=== PATIENT | female | born 1940 | race African-American/Black ===

== ENCOUNTER 2017-12-03 09:25 | Inpatient (IN) | payer MEDICARE ==
[~2017-12-03] VITALS: Ht 160 cm; Wt 55.3 kg
[~2017-12-03 09:25] MED LIST: ALBUTEROL INHAL17 GM IH; ALBUTEROL2.5 MG/3 M IH; ALDACTONE25 MG PO; AMBIEN 10 MG TA10 MG PO; AMPICILLIN TRI500 MG PO; ASPIRIN EC81 M1 PO; CALCIUM; CARDIZEM CD300 MG PO; CIPROFLOXACIN500 M1 PO; DARVOCET-N 1001 EACH PO; DILTIAZEM 24HR300 MG PO; DOCULAX; HYDROCODON-ACE1 EAC1 PO; HYDROCODON-ACE1 EACH PO; LORTABELXR PO; MELOXICAM7.5 MG PO; MIRALAX255 GM PO; MOTION RELIEF25 MG PO; PRAVASTATIN SOD20 MG PO; SYNTHROID 0.10.1 M1 PG; SYNTHROID PO; VITAMIN D 11000 UNIT PO; VITAMIN D1000 UNI1 PO; ZPAK PO; [UNRECOGNIZED DRUG - OTHER] PO
[2017-12-03 09:31] VITALS: BP 111/85
[2017-12-03] MEDS ORDERED: COLACE100 MG PO (09:52)
[2017-12-03] MEDS ORDERED: PRAVACHOL40 MG PO (09:52)
[2017-12-03 09:55] LABS: ABSOLUTE MONOCYTES 0.2 thou/uL (0.0-1.2); ABSOLUTE NEUTROPHILS 5.3 thou/uL (1.6-8.1); BASOPHILS 0.5 %; EOSINOPHILS 0.2 %; HEMATOCRIT 41.1 % (37.0-47.0); LYMPHOCYTES 26.8 %; MCH 30.2 pg (26.0-34.0); MCHC 34.1 g/dL (28.0-37.0); MCV 88.6 fL (80.0-100.0); MONOCYTES 2.3 %; MPV 7.5 fl. (7.2-11.1); NUCLEATED RBCS 0 /100WBC; PLATELET COUNT* 366 thou/uL (150-400); POLYS 70.2 %; RBC 4.63 mil/uL (4.20-5.00); RDW-CV 13.7 % (10.5-14.5); WBC 7.6 thou/uL (4.0-11.0)
[2017-12-03 10:55] LABS: ALBUMIN 3.4 g/dL (3.4-5.0); CALCIUM 9.3 mg/dL (8.5-10.1); POTASSIUM 4.5 mmol/L (3.5-5.1); TOTAL BILIRUBIN 0.4 mg/dL (<0.1-1.0); TOTAL PROTEIN 7.1 g/dL (6.4-8.2)
[2017-12-03 11:01] LABS: URINE BILIRUBIN NEGATIVE (Negative); URINE BLOOD NEGATIVE (Negative); URINE CLARITY CLEAR; URINE COLOR YELLOW; URINE GLUCOSE-RANDOM NEGATIVE (Negative); URINE KETONES NEGATIVE (Negative); URINE LEUKOCYTES-REFLEX NEGATIVE (Negative); URINE NITRITE-REFLEX NEGATIVE (Negative); URINE PROTEIN NEGATIVE (Negative); URINE SPECIFIC GRAVITY 1.015 (1.005-1.030)
--- NOTE | 2017-12-03 12:18 | NUR ---
PT'S , NATALIA MELGAR [phone] CALLED TO REQUEST A PHONE CALL WHEN THE PT HAS A ROOM NUMBER FOR ADMISSION.
--- NOTE | 2017-12-03 12:33 | NUR ---
WITH PT'S PERMISSION, THE PT'S WAS CALLED AND TOLD THE PT WILL BE ADMITTED TO ROOM #115.
[2017-12-03 12:36] VITALS: BP 111/71
--- NOTE | 2017-12-03 12:45 | NUR ---
PATIENT ARRIVED TO UNIT AT 1245. ALERT AND ORIENTED X4. UP AD NINFA IN ROOM. IV IS PATENT. REQUESTING PAIN MEDICATION UPON ARRIVAL TO UNIT. PROVIDER NOTIFIED AND ORDERS HAVE BEEN RECIEVED. NAUSEA BEING MANAGED WITH NAUSEA MEDICATION GIVEN IN THE ER. PATIENT HAS BEEN ORIENTED TO TOOM. VSS ON ROOM AIR. HOURLY ROUNDS HAVE BEEN MAINTAINED THROUGHOUT SHIFT. CALL LIGHT IS WITHIN REACH. NURSING WILL CONTINUE TO MONTIOR.
[2017-12-03 16:00] VITALS: BP 116/65
[2017-12-03 17:47] VITALS: BP 131/69
--- NOTE | 2017-12-03 18:41 | NUR ---
ALERT AND ORIENTED X4. UP AD NINFA IN ROOM. IV IS PATENT AND INFUSING. PAIN BEING MANAGED WITH IV PAIN MEDICATION. NAUSEA BEING MANAGED WITH IV NAUSEA. MEDICATION. NPO AT THIS TIME. VSS ON ROOM AIR. HOURLY ROUNDS HAVE BEEN MAINTAINED THROUGHOUT SHIFT. CALL LIGHT IS WITHIN REACH. NURSING WILL CONTINUE TO MONITOR.
[2017-12-03 20:00] VITALS: BP 115/71
[2017-12-04 04:33] LABS: HEMATOCRIT 30.9 % (37.0-47.0); MCH 29.6 pg (26.0-34.0); MCHC 33.6 g/dL (28.0-37.0); MCV 88.1 fL (80.0-100.0); MPV 7.7 fl. (7.2-11.1); RBC 3.5 mil/uL (4.20-5.00); RDW-CV 13.3 % (10.5-14.5); WBC 6.6 thou/uL (4.0-11.0)
[2017-12-04 04:42] LABS: HEMOGLOBIN 10.4 gm/dL (12.0-15.0)
[2017-12-04 05:04] LABS: ALBUMIN 2.6 g/dL (3.4-5.0); CALCIUM 8.6 mg/dL (8.5-10.1); CREATININE 0.8 mg/dL (0.6-1.3); MAGNESIUM 1.7 mg/dL (1.8-2.4); POTASSIUM 4.1 mmol/L (3.5-5.1); TOTAL BILIRUBIN 0.6 mg/dL (<0.1-1.0); TOTAL PROTEIN 5.9 g/dL (6.4-8.2)
--- NOTE | 2017-12-04 05:17 | NUR ---
PATIENT ALERT AND ORIENTED THROUGHOUT SHIFT. VITAL SIGNS STABLE ON ROOM AIR. IV PATENT IN THE LEFT FOREARM RUNNING NORMAL SALINE AT 100 ML/HR. REMAINS UP STANDBY ASSIST IN HER ROOM. HOURLY ROUNDING HAS BEEN MAINTAINED. PAIN WAS MANAGED WITH IV PAIN MEDICATION. DENIES NAUSEA OR VOMITING. BED IN LOW POSITION. BED ALARM IN PLACE. CALL LIGHT WITHIN REACH. NURSING WILL CONTINUE TO MONITOR.
[2017-12-04 08:15] VITALS: BP 120/59
[2017-12-04 16:00] VITALS: BP 103/64
[2017-12-04 20:45] VITALS: BP 131/65
[2017-12-05 00:57] VITALS: BP 118/61
[2017-12-05 04:47] LABS: ABSOLUTE EOSINOPHILS 0.1 thou/uL (0.0-0.7); ABSOLUTE LYMPHOCYTES 1.7 thou/uL (0.8-5.3); ABSOLUTE MONOCYTES 0.4 thou/uL (0.0-1.2); ABSOLUTE NEUTROPHILS 3.2 thou/uL (1.6-8.1); BASOPHILS 0.5 %; EOSINOPHILS 1.2 %; HEMATOCRIT 26.8 % (37.0-47.0); HEMOGLOBIN 9.1 gm/dL (12.0-15.0); LYMPHOCYTES 31.1 %; MCH 30.1 pg (26.0-34.0); MCHC 33.8 g/dL (28.0-37.0); MCV 89.1 fL (80.0-100.0); MONOCYTES 7.5 %; MPV 7.5 fl. (7.2-11.1); NUCLEATED RBCS 0 /100WBC; PLATELET COUNT* 245 thou/uL (150-400); POLYS 59.7 %; RBC 3.01 mil/uL (4.20-5.00); RDW-CV 13.1 % (10.5-14.5); WBC 5.4 thou/uL (4.0-11.0)
[2017-12-05 05:09] LABS: CALCIUM 8.5 mg/dL (8.5-10.1); CREATININE 0.8 mg/dL (0.6-1.3); MAGNESIUM 1.5 mg/dL (1.8-2.4); PHOSPHORUS* 2.9 mg/dL (2.5-4.9); POTASSIUM 3.6 mmol/L (3.5-5.1)
--- NOTE | 2017-12-05 05:20 | NUR ---
PATIENT REMAINS ALERT AND ORIENTED X4. VITAL SIGNS STABLE ON ROOM AIR. PAIN BEING MANAGED WITH IV MEDICATION. DENIES NAUSEA AT THIS TIME. REPOSITIONING SELF. IV IN LEFT FOREARM PATENT AND INFUSING NS AT 100 ML/HR. TOLERATING CLEAR LIQUID DIET THROUGHOUT SHIFT. HOURLY ROUNDING COMPLETE. FALL PRECAUTIONS IN PLACE. BED IN LOW POSITION. BED ALARM IN PLACE. CALL LIGHT WITHIN REACH. NURSING WILL CONTINUE TO MONITOR.
--- NOTE | 2017-12-05 15:30 | NUR ---
PT.UP AD NINFA IN HALLS. GAIT STEADY. SPOKE WITH HER AFTER RETURNING TO ROOM. SHE SAID SHE LIVES WITH HER AND SON. SHE IS NORMALLY INDEPENDENT AT HOME. SHE DOES NOT HAVE ANY DME. HER FAMILY IS SUPPORTIVE. SHE DOESN'T THINK SHE WILL HVE ANY DISCHARGE NEEDS.
[2017-12-05 16:02] VITALS: BP 112/67
--- NOTE | 2017-12-05 19:01 | NUR ---
PATIENT REMAINED ALERT AND ORIENTED X'S 4. VITAL SIGNS AND SPO2. IV CLEAN FLUDIS INFUSING. TOLERATED DIET, NO NAUSEA AND VOMITING. PATIENT WALKED HALLS. COMPLETED HOURLY ROUNDING. CALL LIGHT WITHIN REACH. WILL CONTINUE TO MONITOR.
[2017-12-05 20:40] VITALS: BP 136/65
[2017-12-06 04:13] LABS: HEMATOCRIT 29.3 % (37.0-47.0); MCHC 34.1 g/dL (28.0-37.0); MCV 88.2 fL (80.0-100.0); MPV 7.6 fl. (7.2-11.1); RBC 3.32 mil/uL (4.20-5.00); RDW-CV 13.1 % (10.5-14.5); WBC 6.2 thou/uL (4.0-11.0)
--- NOTE | 2017-12-06 05:11 | NUR ---
PATIENT HAS SLEPT WELL THROUGHOUT THE NIGHT WITHOUT ANY ISSUES. NO C/O PAIN. NO BM NOTED. PATIENT REMAINS ON FULL LIQUID DIET AT THIS TIME AND HAS TOLERATED WELL. VSS ON RA. PATIENT IS UP AD-NINFA AND STEADY. IV IN LEFT ARM-D5 1/2 NS W/20K+ @ 100ML/HR. PATIENT INSTRUCTED TO USE CALL LIGHT WHEN NEEDING ASSISTANCE. HOURLY ROUNDS MADE. WILL CONTINUE WITH PLAN OF CARE AND NURSING TO MONITOR.
[2017-12-06 05:12] LABS: ALBUMIN 2.8 g/dL (3.4-5.0); CREATININE 0.8 mg/dL (0.6-1.3); POTASSIUM 3.8 mmol/L (3.5-5.1); TOTAL BILIRUBIN 0.3 mg/dL (<0.1-1.0); TOTAL PROTEIN 6.8 g/dL (6.4-8.2)
[2017-12-06 07:52] VITALS: BP 128/65
[2017-12-06] MEDS ORDERED: MIRALAX17 GM PO (08:45)
[2017-12-06 10:33] VITALS: BP 128/65
--- NOTE | 2017-12-06 14:34 | NUR ---
ASSUMED CARE OF PATIENT AFTER MORNING REPORT. ALERT AND ORIENTED X4. ASSESSMENT COMPLETED AND CHARTED. VSS ON ROOM AIR. PATIENT HAS HAD NO COMPLAINTS OF PAIN OR NAUSEA THIS SHIFT. DIET ADVANCED FROM FULL LIQUIDS TO A REGULAR DIET AND PATIENT TOLERATED IT WELL. PATIENT TO FOLLOW UP WITH GI FOR BOWEL REGIMIEN. PATIENT DISCHARGED AT 1345, ALL PERSONAL BELONGINGS LEFT WITH PATIENT AND DISCHARGE INFORMATION SENT WITH PATIENT.
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
== END 2017-12-06 13:45 | disposition home or self-care (01) | DRG 389 ==
LOC: M.ERS 09:25 → M.ORTHSURG 12:05 → M.TBA-ER 12:05 → M.ORTHSURG 12:52
PROVIDERS: Internal Medicine; Nurse Practitioner Family; Surgery; ADMIT Family Medicine
DX: K56.600 Partial intestinal obstruction, unspecified as to cause (principal); E44.1 Mild protein-calorie malnutrition; E78.5 Hyperlipidemia, unspecified; J44.9 Chronic obstructive pulmonary disease, unspecified; I11.9 Hypertensive heart disease without heart failure; K59.09 Other constipation; E03.9 Hypothyroidism, unspecified; Z79.899 Other long term (current) drug therapy; Z72.89 Other problems related to lifestyle; Z88.5 Allergy status to narcotic agent; Z68.21 Body mass index [BMI] 21.0-21.9, adult

== ENCOUNTER 2018-09-14 18:20 | Emergency (ER) | payer MEDICARE ==
[~2018-09-14] VITALS: Ht 160 cm; Wt 49.9 kg
[~2018-09-14 18:20] MED LIST changes: +COLACE100 MG PO; +MIRALAX17 GM PO; +PRAVACHOL40 MG PO
[2018-09-14 18:58] LABS: ABSOLUTE BASOPHILS 0.1 thou/uL (0.0-0.2); ABSOLUTE LYMPHOCYTES 1.3 thou/uL (0.8-5.3); ABSOLUTE MONOCYTES 0.4 thou/uL (0.0-1.2); ABSOLUTE NEUTROPHILS 5.2 thou/uL (1.6-8.1); BASOPHILS 0.8 %; EOSINOPHILS 0.2 %; HEMOGLOBIN 12.4 gm/dL (12.0-15.0); LYMPHOCYTES 18.6 %; MCHC 33.5 g/dL (28.0-37.0); MCV 89.6 fL (80.0-100.0); MONOCYTES 6.3 %; MPV 7.7 fl. (7.2-11.1); NUCLEATED RBCS 0 /100WBC; PLATELET COUNT* 290 thou/uL (150-400); POLYS 74.1 %; RBC 4.13 mil/uL (4.20-5.00); RDW-CV 14.2 % (10.5-14.5)
[2018-09-14 19:08] LABS: ANION GAP 8 mmol/L (7-16); BUN 11 mg/dL (7-18); CALCIUM 9.4 mg/dL (8.5-10.1); CHLORIDE 103 mmol/L (98-107); CO2 28 mmol/L (21-32); GLUCOSE 136 mg/dL (70-99); POTASSIUM 4.2 mmol/L (3.5-5.1); SODIUM 139 mmol/L (136-145)
[2018-09-14 19:15] LABS: ALBUMIN 3.5 g/dL (3.4-5.0); ALKALINE PHOSPHATASE 105 U/L (46-116); LIPASE 83 U/L (73-393); SGOT 20 U/L (15-37); SGPT 14 U/L (30-65); TOTAL BILIRUBIN 0.3 mg/dL (<0.1-1.0); TOTAL PROTEIN 7.6 g/dL (6.4-8.2); TROPONIN-I LEVEL <0.06 ng/mL (<0.06)
[2018-09-14 20:15] LABS: URINE BILIRUBIN NEGATIVE (Negative); URINE BLOOD NEGATIVE (Negative); URINE CLARITY CLEAR; URINE COLOR YELLOW; URINE GLUCOSE-RANDOM NEGATIVE (Negative); URINE KETONES NEGATIVE (Negative); URINE LEUKOCYTES-REFLEX NEGATIVE (Negative); URINE NITRITE-REFLEX NEGATIVE (Negative); URINE PROTEIN NEGATIVE (Negative); URINE SPECIFIC GRAVITY <= 1.005 (1.005-1.030)
[2018-09-14] MEDS ORDERED: NORCO 5-325 TA1 EACH PO (20:23)
[2018-09-14 20:42] VITALS: BP 121/71
--- NOTE | 2018-09-15 10:51 | EKG ---
[place] [address] ELECTROCARDIOGRAM REPORT Name: ROBERTA MELGAR Room: [facility]#: [id number] Admission: 09/14/18 Attend Phys: Discharge: 09/14/18 Date of : 36 Report #: [id number] THIS REPORT FOR: //name// [facility] ED Test Date: 2018-09-14 Test Time: 18:43:32 Pat Name: ROBERTA RAMÓN Department: Room: Gender: F Food Products Tester: Madhav BRANDON : 1940 Requested By: Nataliia Warner Order Number: [id number] MD: Willy Kaiser Measurements Intervals [place] Rate: 83 P: 40 [place]: 161 QRS: -7 QRSD: 79 T: 29 QT: 352 QTc: 414 Interpretive Statements Sinus rhythm Low voltage, extremity lead Compared to ECG 06/21/2017 11:27:54 Low QRS voltage now present Electronically Signed On 09-15-2018 10:50:57 SAMPLE PREP TECHNICIAN by Willy Kaiser [email or web address] <ELECTRONICALLY SIGNED> By: Willy Kaiser MD, [facility] 09/15/18 1050 184 42 Willy Kaiser MD, FACC /EPI
== END 2018-09-14 20:44 | disposition home or self-care (01) ==
LOC: M.ERS 18:20
PROVIDERS: Physician Assistant
DX: R10.32 Left lower quadrant pain (principal); E03.9 Hypothyroidism, unspecified; I10 Essential (primary) hypertension; F17.210 Nicotine dependence, cigarettes, uncomplicated; Z88.5 Allergy status to narcotic agent

== ENCOUNTER → 2018-12-18 | Outpatient (CLI) | payer MEDICARE ==
[~2018-12-18] MED LIST changes: +NORCO 5-325 TA1 EACH PO
== END ==
LOC: M.RAD 10:26
DX: Z12.31 Encounter for screening mammogram for malignant neoplasm of breast (principal)

== ENCOUNTER 2019-03-06 04:52 | Inpatient (IN) | payer MEDICARE ==
[~2019-03-06] VITALS: Ht 160 cm; Wt 52.2 kg
[~2019-03-06 04:52] MED LIST changes: +HYDROCODON-ACE1 EA11 PO; -HYDROCODON-ACE1 EACH PO
[2019-03-06 04:56] VITALS: BP 128/71
[2019-03-06 05:23] LABS: URINE BILIRUBIN NEGATIVE (Negative); URINE BLOOD NEGATIVE (Negative); URINE CLARITY CLEAR; URINE COLOR YELLOW; URINE GLUCOSE-RANDOM NEGATIVE (Negative); URINE KETONES NEGATIVE (Negative); URINE LEUKOCYTES-REFLEX NEGATIVE (Negative); URINE NITRITE-REFLEX NEGATIVE (Negative); URINE PROTEIN NEGATIVE (Negative); URINE SPECIFIC GRAVITY 1.025 (1.005-1.030); URINE UROBILINOGEN 0.2 E.U./dl (0.2-1.0)
[2019-03-06 05:31] LABS: ABSOLUTE MONOCYTES 0.3 thou/uL (0.0-1.2); ABSOLUTE NEUTROPHILS 3.9 thou/uL (1.6-8.1); BASOPHILS 0.7 %; EOSINOPHILS 0.7 %; HEMATOCRIT 39.2 % (37.0-47.0); HEMOGLOBIN 12.9 gm/dL (12.0-15.0); LYMPHOCYTES 32.2 %; MCH 29.1 pg (26.0-34.0); MCHC 32.8 g/dL (28.0-37.0); MCV 88.9 fL (80.0-100.0); MONOCYTES 5.2 %; MPV 7.7 fl. (7.2-11.1); NUCLEATED RBCS 0 /100WBC; PLATELET COUNT* 233 thou/uL (150-400); POLYS 61.2 %; RBC 4.41 mil/uL (4.20-5.00); RDW-CV 14.9 % (10.5-14.5); WBC 6.3 thou/uL (4.0-11.0)
[2019-03-06 05:45] LABS: CALCIUM 9.8 mg/dL (8.5-10.1); CREATININE 0.8 mg/dL (0.6-1.3); POTASSIUM 3.9 mmol/L (3.5-5.1)
[2019-03-06 05:49] LABS: ALBUMIN 3.8 g/dL (3.4-5.0); TOTAL BILIRUBIN 0.5 mg/dL (<0.1-1.0); TOTAL PROTEIN 7.7 g/dL (6.4-8.2)
[2019-03-06 09:39] VITALS: BP 130/67
[2019-03-06 11:30] VITALS: BP 130/67
--- NOTE | 2019-03-06 13:55 | NUR ---
PT VERBALIZES THAT SHE IS FEELING BETTER AT THIS TIME AND HER PAIN IS MUCH BETTER CONTROLLED. PT STILL REPORTS SOME NAUSEA AND WANTS TO WAIT ON ORAL MED DUE AT THIS TIME
[2019-03-06 16:29] VITALS: BP 112/55
--- NOTE | 2019-03-06 18:13 | NUR ---
PT PAIN NOT WELL MANAGED THIS SHIFT, NG PLACED FOR SBO, CONFIRMATION XRAY COMPLETE AND PT HOOKED UP TO LIWS. LABS UNREMARKABLE. NEW IV PLACED DUE TO PT TURNING AND PULLING IV OUT. BED ALARM SET AT THIS TIME. PT ABLE TO AMBULATE WITH SBA. WILL CONTINUE TO MONITOR AND ASSESS.
[2019-03-06 20:30] VITALS: BP 121/65
[2019-03-07] VITALS: BP 130/70
[2019-03-07 04:00] VITALS: BP 134/91
[2019-03-07 04:07] LABS: ABSOLUTE LYMPHOCYTES 1.2 thou/uL (0.8-5.3); ABSOLUTE MONOCYTES 0.4 thou/uL (0.0-1.2); ABSOLUTE NEUTROPHILS 2.3 thou/uL (1.6-8.1); BASOPHILS 0.2 %; EOSINOPHILS 0.1 %; HEMATOCRIT 36.6 % (37.0-47.0); HEMOGLOBIN 12.2 gm/dL (12.0-15.0); LYMPHOCYTES 30.8 %; MCH 29.5 pg (26.0-34.0); MCHC 33.3 g/dL (28.0-37.0); MCV 88.6 fL (80.0-100.0); MONOCYTES 9.5 %; MPV 8.1 fl. (7.2-11.1); NUCLEATED RBCS 0 /100WBC; PLATELET COUNT* 234 thou/uL (150-400); POLYS 59.4 %; RBC 4.13 mil/uL (4.20-5.00); RDW-CV 14.4 % (10.5-14.5); WBC 3.9 thou/uL (4.0-11.0)
[2019-03-07 04:19] LABS: CALCIUM 8.7 mg/dL (8.5-10.1); CREATININE 0.8 mg/dL (0.6-1.3); MAGNESIUM 1.4 mg/dL (1.8-2.4); POTASSIUM 3.8 mmol/L (3.5-5.1)
--- NOTE | 2019-03-07 05:44 | NUR ---
ASSUMED PATIENT CARE AT 0100. PATIENT SLEEPING UPON ARRIVAL. PATIENT REMAINS ON NPO STATUS. NG TUBE IN PLACE TO LIS. SEE EMAR FOR MED ADMINISTRATION. FALL RISK PRECAUTIONS IN PLACE. WILL CONTINUE TO MONITOR
[2019-03-07 09:10] VITALS: BP 138/79
--- NOTE | 2019-03-07 09:33 | NUR ---
INITIAL ASSESSMENT: Pt evaluated for d/c planning needs. Reviewed chart and spoke with nurse and pt. Pt is alert and oriented. Pt states she lives at home and was independent with ADL's prior to admission. Will follow for d/c planning needs.
[2019-03-07 16:04] VITALS: BP 121/42
--- NOTE | 2019-03-07 18:04 | NUR ---
PATIENT RESTING IN BED. PATIENT HAS BEEN UP TO CHAIR AND WALKING IN ROOM TODAAY. PATIENT HAS COMPLAINTS OF ABDOMINAL PAIN, TREATED ADEQUATELY WITH MEDICATION. NG TUBE CLAMPED THIS AFTERNOON PER SURGERY ORDER. PATIENT IS TOLERATING CLEAR LIQUIDS WITHOUT NAUSEA BUT HAS CONTINUED ABDOMINAL PAIN. SUPPOSITORY ADN MILK OF MAG GIVEN, NO BOWEL MOVEMENT AT THIS TIME. PATIENT IS PASSING FLATUS. PATIENT DENIES ANY NEEDS AT THIS TIME. CALL LIGHT WITHIN REACH. WILL CONTINUE TO MONITOR.
[2019-03-07 20:00] VITALS: BP 133/79
[2019-03-08 03:54] LABS: HEMATOCRIT 30.3 % (37.0-47.0); MCH 29.2 pg (26.0-34.0); MCHC 32.7 g/dL (28.0-37.0); MCV 89.4 fL (80.0-100.0); RBC 3.39 mil/uL (4.20-5.00); RDW-CV 14.6 % (10.5-14.5)
[2019-03-08 04:00] VITALS: BP 142/79
[2019-03-08 04:11] LABS: HEMOGLOBIN 9.9 gm/dL (12.0-15.0)
[2019-03-08 04:16] LABS: CALCIUM 8.4 mg/dL (8.5-10.1); CREATININE 0.7 mg/dL (0.6-1.3); POTASSIUM 3.8 mmol/L (3.5-5.1)
--- NOTE | 2019-03-08 05:27 | NUR ---
PATIENT SLEPT MOST OF THE NIGHT. IV FLUIDS CONTINUE TO INFUSE ORDERED. IV PAIN MEDICINE WAS GIVEN TWICE THIS SHIFT. PATIENT WAS VERY UNCOMFORTABLE ABOUT 2244 EVEN AFTER SOME FENTANYL SAID IT WASNT HELPING THAT MUCH. PLACED HER NG TUBE BACK TO SUCTION AT THIS TIME PATIENT HAS BEEN MORE COMFOARTABLE SINCE THEN. WILL CONTINUE TO MONITOR.
[2019-03-08 07:55] VITALS: BP 143/68
[2019-03-08 16:41] VITALS: BP 151/76
--- NOTE | 2019-03-08 17:13 | NUR ---
PATIENT RESTING UP IN CHAIR. SIVA TIS UP AD NINFA AND HAS WALKED IN HALLWAYS. PATIENT HAS CONTINUED ABDOMINAL PAIN BUT HAS ONLY REQUIRED FENTANYL ONE TIME. NG TUBE HAS BEEN CLAMPED SINCE THIS AM. SIVA TIS TOLERATING CLEAR LIQUIDS WITH NO NAUSEA. PATIENT HAS NOT HAD BOWEL MOVEMENT. PATIENT DENIES ANY NEEDS AT THIS TIME. CALL LIGHT WITHIN REACH. WILL CONTINUE TO MONITOR.
[2019-03-08 20:15] VITALS: BP 161/90
[2019-03-09 04:07] LABS: HEMATOCRIT 34.3 % (37.0-47.0); HEMOGLOBIN 11.3 gm/dL (12.0-15.0); MCH 29.3 pg (26.0-34.0); MCHC 32.9 g/dL (28.0-37.0); MCV 89.1 fL (80.0-100.0); RBC 3.85 mil/uL (4.20-5.00); RDW-CV 14.2 % (10.5-14.5); WBC 6.3 thou/uL (4.0-11.0)
[2019-03-09 04:08] LABS: CALCIUM 9.3 mg/dL (8.5-10.1); CREATININE 0.8 mg/dL (0.6-1.3); POTASSIUM 3.5 mmol/L (3.5-5.1)
--- NOTE | 2019-03-09 05:12 | NUR ---
PATIENT HAS REMAINED ALERT AND ORIENTED X 4 THROUGHOUT THE SHIFT AND RESTING QUIETLY ON HOURLY ROUNDS. HAS DENIED NEED FOR PAIN OR NAUSEA MEDICATION. NGT REMAINS CLAMPED. EARLY AM LARGE LOOSE BM. ALSO REPORTS PASSING LARGE AMOUNTS OF GAS. VITAL SIGNS STABLE. EARLY AM XRAYS ORDERED FOR SBO FOLLOW-UP. UP SBA/I TO BR. CONTINUE TO MONITOR.
[2019-03-09 08:10] VITALS: BP 151/82
[2019-03-09 14:56] VITALS: BP 151/82
--- NOTE | 2019-03-09 15:44 | NUR ---
PATIENT DISCHARGED TO HOME AFTER TOLERATING BOX LUNCH DINNER. DISCHARGE PAPERS REVIEWED AND SIGNED. NO PRESCRIPTIONS. IV REMOVED. PATIENT DENIES ANY FURTHER NEEDS. PATIENT TAKEN AMBULATORY TO EXIT. LEFT WITH SON.
== END 2019-03-09 15:45 | disposition home or self-care (01) | DRG 389 ==
LOC: M.ERS 04:52 → M.ORTHSURG 08:41 → M.TBA-ER 08:41 → M.ORTHSURG 10:33
PROVIDERS: Emergency Medicine; Surgery; ADMIT Internal Medicine
PROC: 0D9670Z Drainage of Stomach with Drainage Device, Via Natural or Artificial Opening (ICD-10-PCS; principal; 2019-03-06)
DX: K56.609 Unspecified intestinal obstruction, unspecified as to partial versus complete obstruction (principal); J98.11 Atelectasis; E03.9 Hypothyroidism, unspecified; I10 Essential (primary) hypertension; K59.09 Other constipation; K59.00 Constipation, unspecified; Z88.6 Allergy status to analgesic agent; Z87.891 Personal history of nicotine dependence; Z79.899 Other long term (current) drug therapy

== ENCOUNTER 2019-09-23 05:29 | Emergency (ER) | payer MEDICARE ==
[~2019-09-23] VITALS: Ht 160 cm; Wt 52.2 kg
[2019-09-23] MEDS ORDERED: NP THYROID60 MG PO (05:44)
[2019-09-23 06:05] LABS: ABSOLUTE EOSINOPHILS 0.1 thou/uL (0.0-0.7); ABSOLUTE LYMPHOCYTES 2.7 thou/uL (0.8-5.3); ABSOLUTE MONOCYTES 0.3 thou/uL (0.0-1.2); ABSOLUTE NEUTROPHILS 3.7 thou/uL (1.6-8.1); BASOPHILS 0.7 %; EOSINOPHILS 0.9 %; HEMATOCRIT 36.8 % (37.0-47.0); HEMOGLOBIN 12.6 gm/dL (12.0-15.0); LYMPHOCYTES 39.6 %; MCH 29.8 pg (26.0-34.0); MCHC 34.1 g/dL (28.0-37.0); MCV 87.3 fL (80.0-100.0); MONOCYTES 4.8 %; MPV 7.6 fl. (7.2-11.1); NUCLEATED RBCS 0 /100WBC; PLATELET COUNT* 293 thou/uL (150-400); RBC 4.22 mil/uL (4.20-5.00); RDW-CV 14.6 % (10.5-14.5); WBC 6.8 thou/uL (4.0-11.0)
[2019-09-23 06:19] LABS: CALCIUM 9.9 mg/dL (8.5-10.1); CREATININE 1.1 mg/dL (0.6-1.3); POTASSIUM 3.7 mmol/L (3.5-5.1); TOTAL BILIRUBIN 0.2 mg/dL (<0.1-1.0); TOTAL PROTEIN 8.1 g/dL (6.4-8.2)
[2019-09-23] MEDS ORDERED: NORCO 5-325 TA1 EAC1 PO (08:30)
[2019-09-23 08:51] VITALS: BP 127/70
--- NOTE | 2019-09-23 14:01 | EKG ---
[place] [address] ELECTROCARDIOGRAM REPORT Name: ROBERTA MELGAR [id number] Admission: 09/23/19 Attend Phys: Discharge: 09/23/19 Date of : 36 Report #: [id number] THIS REPORT FOR: //name// [facility] ED Test Date: 2019-09-23 Test Time: 06:02:12 Pat Name: ROBERTA RAMÓN Department: Room: Gender: F Director Life Sciences: : 1940 Requested By: Nataliia Marrero Order Number: [id number] MD: Willy Kaiser Measurements Intervals [place] Rate: 71 P: 36 MD: 150 QRS: -24 QRSD: 78 T: 1 QT: 408 QTc: 444 Interpretive Statements Sinus rhythm Inferior infarct, old Compared to ECG 09/14/2018 18:43:32 Myocardial infarct finding now present Electronically Signed On 09-23-2019 14:00:50 MIDDLE SCHOOL PRINCIPAL by Willy Kaiser [email or web address] <ELECTRONICALLY SIGNED> By: Willy Kaiser MD, [facility] 09/23/19 1400 D: 01/601 1 Willy Kaiser MD, FACC /EPI
== END 2019-09-23 08:52 | disposition home or self-care (01) ==
LOC: M.ERS 05:29
PROVIDERS: Personal Emergency Response Attendant
DX: R10.84 Generalized abdominal pain (principal); R11.2 Nausea with vomiting, unspecified; J44.9 Chronic obstructive pulmonary disease, unspecified; E03.9 Hypothyroidism, unspecified; I10 Essential (primary) hypertension; F17.210 Nicotine dependence, cigarettes, uncomplicated; Z88.5 Allergy status to narcotic agent

== ENCOUNTER → 2020-04-01 | Outpatient (CLI) | payer MEDICARE ==
[~2020-04-01] MED LIST changes: +NORCO 5-325 TA1 EAC1 PO; +NP THYROID60 MG PO
== END ==
LOC: M.RAD 13:15
PROVIDERS: ATTEND Internal Medicine Endocrinology, Diabetes & Metabolism
DX: Z12.31 Encounter for screening mammogram for malignant neoplasm of breast (principal); E06.3 Autoimmune thyroiditis; M81.0 Age-related osteoporosis without current pathological fracture

== ENCOUNTER → 2021-04-17 | Outpatient (CLI) | payer MEDICARE | LOC: M.RAD 10:46 | PROVIDERS: ATTEND Internal Medicine Endocrinology, Diabetes & Metabolism | DX: Z12.31 Encounter for screening mammogram for malignant neoplasm of breast (principal); N64.89 Other specified disorders of breast ==

== ENCOUNTER 2021-10-30 21:57 | Inpatient (IN) | payer MEDICARE ==
[~2021-10-30] VITALS: Ht 160 cm; Wt 54.4 kg
[2021-10-30 22:01] VITALS: BP 106/71
[2021-10-30 22:21] LABS: ABSOLUTE LYMPHOCYTES 1.5 thou/uL (0.8-5.3); ABSOLUTE MONOCYTES 0.2 thou/uL (0.0-1.2); ABSOLUTE NEUTROPHILS 4.8 thou/uL (1.6-8.1); BASOPHILS 0.4 %; EOSINOPHILS 0.4 %; HEMATOCRIT 41.4 % (37.0-47.0); HEMOGLOBIN 13.8 gm/dL (12.0-15.0); LYMPHOCYTES 22.7 %; MCH 29.3 pg (26.0-34.0); MCHC 33.4 g/dL (28.0-37.0); MCV 87.9 fL (80.0-100.0); MONOCYTES 3.3 %; MPV 7.6 fl. (7.2-11.1); NUCLEATED RBCS 0 /100WBC; PLATELET COUNT* 300 thou/uL (150-400); POLYS 73.2 %; RBC 4.71 mil/uL (4.20-5.00); RDW-CV 14.9 % (10.5-14.5); WBC 6.6 thou/uL (4.0-11.0)
[2021-10-30 22:31] LABS: CALCIUM 10.1 mg/dL (8.5-10.1); CREATININE 1.5 mg/dL (0.6-1.3); POTASSIUM 4.3 mmol/L (3.5-5.1)
[2021-10-30 22:35] LABS: ALBUMIN 4.6 g/dL (3.4-5.0); MAGNESIUM 1.9 mg/dL (1.8-2.4); TOTAL BILIRUBIN 0.5 mg/dL (<0.1-1.0); TOTAL PROTEIN 8.7 g/dL (6.4-8.2)
[2021-10-31 02:07] LABS: URINE BLOOD NEGATIVE (Negative); URINE CLARITY CLEAR; URINE COLOR YELLOW; URINE GLUCOSE-RANDOM NEGATIVE (Negative); URINE KETONES TRACE (Negative); URINE LEUKOCYTES-REFLEX NEGATIVE (Negative); URINE NITRITE-REFLEX NEGATIVE (Negative); URINE PROTEIN NEGATIVE (Negative); URINE SPECIFIC GRAVITY 1.025 (1.005-1.030); URINE UROBILINOGEN 0.2 E.U./dl (0.2-1.0)
[2021-10-31 02:08] LABS: URINE BILIRUBIN 1+ (Negative)
[2021-10-31 02:09] LABS: ICTOTEST (BILI CONFIRMATORY) Negative (Negative)
[2021-10-31 03:05] VITALS: BP 122/68
[2021-10-31 04:00] VITALS: BP 108/51
[2021-10-31 08:00] VITALS: BP 119/63
--- NOTE | 2021-10-31 10:35 | EKG ---
[place] [address] ELECTROCARDIOGRAM REPORT Name: ROBERTA MELGAR Room: [address] ADM IN M.R.#: [id number] Admission: 10/31/21 Attend Phys: Lan Diop Discharge: Date of : 36 Date of Service: 10/30/212206 Report #: [id number] THIS REPORT FOR: //name// [facility] ED Test Date: 2021-10-30 Test Time: 22:07:33 Pat Name: ROBERTA RAMÓN Department: Room: [facility] Gender: F Automobile Brake Bonder: TO : 1940 Requested By: Leann Gonzalez Order Number: [id number] MD: Soren De La Vega Measurements Intervals [place] Rate: 72 P: 16 [place]: 152 QRS: 5 QRSD: 77 T: 34 QT: 410 QTc: 449 Interpretive Statements Sinus rhythm Borderline low voltage, extremity leads Compared to ECG 09/23/2019 06:02:12 no change Electronically Signed On 10-31-2021 10:35:36 ANTHROPOLOGY FACULTY MEMBER by Soren De La Vega [email or web address] <ELECTRONICALLY SIGNED> By: Soren De La Vega MD, FAC 10/31/21 1035 06 06 Soren De La Vega MD, [facility] /EPI
[2021-10-31 13:10] VITALS: BP 120/65
[2021-10-31 16:30] VITALS: BP 114/62
[2021-10-31 19:50] VITALS: BP 130/66
[2021-11-01] VITALS: BP 131/69
[2021-11-01 05:49] LABS: CALCIUM 8.4 mg/dL (8.5-10.1); CREATININE 0.9 mg/dL (0.6-1.3)
[2021-11-01 07:58] LABS: ABSOLUTE LYMPHOCYTES 1.4 thou/uL (0.8-5.3); ABSOLUTE MONOCYTES 0.5 thou/uL (0.0-1.2); ABSOLUTE NEUTROPHILS 2.1 thou/uL (1.6-8.1); BASOPHILS 0.2 %; EOSINOPHILS 0.7 %; HEMATOCRIT 32.3 % (37.0-47.0); LYMPHOCYTES 34.3 %; MCH 29.4 pg (26.0-34.0); MCHC 33.2 g/dL (28.0-37.0); MCV 88.4 fL (80.0-100.0); MONOCYTES 11.7 %; MPV 8.5 fl. (7.2-11.1); NUCLEATED RBCS 0 /100WBC; PLATELET COUNT* 231 thou/uL (150-400); POLYS 53.1 %; RBC 3.66 mil/uL (4.20-5.00); RDW-CV 14.6 % (10.5-14.5); WBC 3.9 thou/uL (4.0-11.0)
[2021-11-01 07:59] LABS: HEMOGLOBIN 10.7 gm/dL (12.0-15.0)
[2021-11-01 15:50] VITALS: BP 140/59
[2021-11-01 20:10] VITALS: BP 140/71
[2021-11-01 23:59] VITALS: BP 94/48
[2021-11-02] VITALS: BP 124/93
[2021-11-02 04:36] VITALS: BP 130/60
[2021-11-02 05:12] LABS: ABSOLUTE MONOCYTES 0.4 thou/uL (0.0-1.2); ABSOLUTE NEUTROPHILS 1.8 thou/uL (1.6-8.1); BASOPHILS 0.2 %; HEMATOCRIT 29.3 % (37.0-47.0); LYMPHOCYTES 29.6 %; MCH 29.9 pg (26.0-34.0); MONOCYTES 13.7 %; MPV 8.3 fl. (7.2-11.1); NUCLEATED RBCS 0 /100WBC; PLATELET COUNT* 211 thou/uL (150-400); POLYS 55.5 %; RBC 3.33 mil/uL (4.20-5.00); RDW-CV 14.4 % (10.5-14.5); WBC 3.3 thou/uL (4.0-11.0)
[2021-11-02 05:36] LABS: ALBUMIN 2.9 g/dL (3.4-5.0); CALCIUM 8.5 mg/dL (8.5-10.1); CREATININE 0.7 mg/dL (0.6-1.3); POTASSIUM 3.9 mmol/L (3.5-5.1); TOTAL BILIRUBIN 0.5 mg/dL (<0.1-1.0); TOTAL PROTEIN 6.4 g/dL (6.4-8.2)
[2021-11-02 07:54] VITALS: BP 124/58
[2021-11-02 13:38] VITALS: BP 118/55
[2021-11-02 18:31] VITALS: BP 123/63
[2021-11-02 20:33] VITALS: BP 132/63
== END 2021-11-03 | disposition home health service (06) | DRG 388 ==
LOC: M.ERS 21:57 → M.2W 10-31 01:55 → M.TBA-ER 10-31 01:55 → M.2W 10-31 03:38
PROVIDERS: Emergency Medicine; Internal Medicine; ADMIT Internal Medicine; ATTEND Internal Medicine
PROC: 0D9670Z Drainage of Stomach with Drainage Device, Via Natural or Artificial Opening (ICD-10-PCS; principal; 2021-11-02)
PROC: 05HB33Z Insertion of Infusion Device into Right Basilic Vein, Percutaneous Approach (ICD-10-PCS; principal; 2021-11-02)
DX: K56.699 Other intestinal obstruction unspecified as to partial versus complete obstruction (principal); N17.0 Acute kidney failure with tubular necrosis; E03.9 Hypothyroidism, unspecified; J44.9 Chronic obstructive pulmonary disease, unspecified; E78.5 Hyperlipidemia, unspecified; Z20.822 Contact with and (suspected) exposure to COVID-19; I12.9 Hypertensive chronic kidney disease with stage 1 through stage 4 chronic kidney disease, or unspecified chronic kidney disease; N18.9 Chronic kidney disease, unspecified; K59.09 Other constipation; D64.9 Anemia, unspecified; Z88.6 Allergy status to analgesic agent; Z87.891 Personal history of nicotine dependence